=== PATIENT | male | born 1950 ===

== ENCOUNTER 2020-07-28 09:15 | Inpatient (IN) | payer OTHER ==
[~2020-07-28] VITALS: Ht 170.2 cm; Wt 73.5 kg
[2020-07-28] MEDS ORDERED: TENORMIN50 M1 PO (11:07)
[2020-07-28] MEDS ORDERED: NORVASC5 MG PO (11:07)
[2020-07-28] MEDS ORDERED: ATORVASTATIN CA20 MG PO (11:07)
== END 2020-08-06 10:15 | disposition home or self-care (01) | DRG 708 ==
LOC: O/R 08-04 05:22 → SURH 08-04 05:22 → O/R 08-04 07:00 → SURH 08-04 13:26
PROVIDERS: ADMIT Urology; ATTEND Urology
PROC: 0TJB8ZZ Inspection of Bladder, Via Natural or Artificial Opening Endoscopic (ICD-10-PCS; 2020-08-04)
PROC: 0VT00ZZ Resection of Prostate, Open Approach (ICD-10-PCS; principal; 2020-08-04 07:00)
DX: C61 Malignant neoplasm of prostate (principal); D30.4 Benign neoplasm of urethra; N40.0 Benign prostatic hyperplasia without lower urinary tract symptoms; I10 Essential (primary) hypertension

== ENCOUNTER 2020-09-15 08:41 | Outpatient (CLI) | payer OTHER ==
[~2020-09-15 08:41] MED LIST: ATORVASTATIN CA20 MG PO; NORVASC5 MG PO; TENORMIN50 M1 PO
== END 2020-09-15 08:42 | disposition home or self-care (01) ==
LOC: LAB 08:41
PROVIDERS: ATTEND Urology
DX: C61 Malignant neoplasm of prostate (principal)

== ENCOUNTER 2020-09-16 10:45 | Outpatient (CLI) | payer OTHER | END 2020-09-16 10:59 | disposition home or self-care (01) | LOC: MAMO-SONO 10:45 → SONOGRAMA 10:45 | PROVIDERS: ATTEND Urology | DX: N28.89 Other specified disorders of kidney and ureter (principal); C61 Malignant neoplasm of prostate; R31.0 Gross hematuria ==